=== PATIENT | male | born 1955 | race Caucasian/White ===

== ENCOUNTER 2021-12-20 17:15 | Emergency (ER) | payer MEDICARE, BC, SELFPAY ==
[2021-12-20 18:10] VITALS: BP 167/96; PULSE 71; RESP 20; TEMP 36.2; O2SAT 98; BMI 34.9
--- NOTE | 2021-12-20 19:15 | CRLHL7_ITS ---
For Patients: As a result of the Century Cures Act, medical imaging exams and procedure reports are released immediately into your electronic medical record. You may view this report before your referring provider. If you have questions, please contact your health care provider. Indication: Balance irregularity Technique: Volumetric multidetector CT images of the head were obtained without the administration of low osmolar intravenous contrast. Comparison: None available Findings: There is no intra-axial or extra-axial fluid collection. There is no mass effect or midline shift. There is age-related cortical atrophy with sulcal widening and ex vacuo dilatation of the lateral ventricles with a markedly prominent appearance of the 3rd ventricle which may represent presence of an arachnoid cyst. There are chronic small vessel disease changes in the subcortical and periventricular white matter without lost espinoza-white differentiation. The orbits and their contents are grossly within normal limits. The bony calvarium is grossly intact. The paranasal sinuses are clear. The mastoid air cells are well aerated. Impression: Age related cortical atrophy with sulcal widening and ex vacuo dilatation of the lateral ventricles. There is moderate prominence of the 3rd ventricle which may represent presence of an arachnoid cyst. Otherwise, no acute intracranial abnormality. Please note that all CT scans at this facility use dose modulation, iterative reconstruction, and/or weight-based dosing when appropriate to reduce radiation dose to as low as reasonably achievable. Dictated by Hernandez Rivera MD @ 12/20/2021 8:26:08 PM (Electronically Signed)
[2021-12-20] MEDS: 0.9 % SODIUM CHLORIDE 1000 ml 1,000 ML IV (19:48)
[2021-12-20 19:56] LABS: Basophils Absolute Auto 0.02 K/uL (0.00-0.30); Basophils Percent Auto 0.2 % (0.0-3.0); Eosinophils Absolute Auto 0.21 K/uL (0.00-0.50); Eosinophils Percent Auto 2.2 % (0.0-7.0); Hematocrit 38.3 % (37.0-53.0); Hemoglobin* 13.2 gm/dL (13.5-17.5); Immature Granulocytes Abs Auto 0.04 K/uL (0.00-0.30); Lymphocytes Percent Auto 44.9 % (20-44); Mean Corpuscular HGB Conc 35 gm/dL (32-36); Mean Corpuscular Hemoglobin 32 pg (26-34); Mean Corpuscular Volume 93 fL (80-100); Monocytes Percent Auto 5.8 % (0.0-11.0); Neutrophils Absolute Auto 4.43 K/uL (1.7-7.0); Neutrophils Percent Auto 46.5 % (42.0-72.0); Platelet Count* 224 K/uL (140-440); RDW Coefficient of Variation % 13.4 % (11.5-15.5); Red Blood Count 4.11 m/uL (4.30-5.90); White Blood Count* 9.52 K/uL (4.50-11.00)
[2021-12-20 19:57] LABS: Appearance Urine Clear (Clear); Bilirubin Urine Negative (Negative); Blood Urine Negative (Negative); Color Urine Yellow (Yellow); Glucose Urine Negative (Negative); Ketones Urine Negative (Negative); Leukocyte Esterase Urine Negative (Negative); Nitrite Urine Negative (Negative); Protein Urine Negative (Negative); Specific Gravity Urine 1.025 (1.000-1.030); Urobilinogen Urine 0.2 (0.2-1.0)
[2021-12-20 19:57] LABS: Slide Review Reflex No
[2021-12-20 20:03] VITALS: BP 159/101; BP 162/102; BP 167/90; PULSE 75; PULSE 77; PULSE 82
[2021-12-20 20:09] LABS: Albumin* 4.1 g/dL (3.3-5.0); Chloride* 98 mmol/L (96-114)
[2021-12-20 20:10] LABS: Potassium* 4.3 mmol/L (3.6-5.1); Sodium* 131 mmol/L (135-149)
[2021-12-20 20:12] LABS: Alkaline Phosphatase* 86 U/L (40-150); Aspartate Amino Transferase* 32 U/L (12-35); Bilirubin Total* 0.7 mg/dL (0.1-1.5); Blood Urea Nitrogen* 16 mg/dL (7-30); Carbon Dioxide* 29 mmol/L (20-32); Creatinine* 0.9 mg/dL (0.5-1.5); Estimated Glomerular Filt Rate 93 ml/min; Total Protein* 6.6 g/dL (6.0-8.3)
[2021-12-20 20:13] LABS: Alanine Aminotransferase* 28 U/L (4-50); Calcium* 8.7 mg/dL (8.4-10.6); Glucose* 99 mg/dL (60-115)
[2021-12-20 20:33] LABS: PCR FLU A Negative PCR FLU A (Negative); PCR FLU B Negative PCR FLU B (Negative)
[2021-12-20 20:49] LABS: SARS PCR* Negative SARS-CoV-2 (Negative)
[2021-12-20 21:00] VITALS: BP 157/102; PULSE 71; RESP 20; O2SAT 98
--- NOTE | 2021-12-20 21:18 | CT_ITS ---
Final Report Patient: JOSE ANDERSON Facility:?[facility] Patient ID:?[id number] Site Patient ID:?[id number]. Site :?1955 Study:?CT ST Neck Angio W/ISOVUE 370 95CC-12/20/2021 9:50:17 PM Ordering Physician:?Radha Gutiérrez Final Report: CT ANGIOGRAM NECK DATE: 12/20/2021 CLINICAL HISTORY: Patient with imbalance. TECHNIQUE: Standard helical CT image acquisition of the neck up to the skull base after bolus intravenous contrast enhancement. Multiplanar reconstructed images performed on a separate workstation. COMPARISON: CT same day. FINDINGS: The origins of the great vessels from the aortic arch are patent. The origin of the right vertebral artery is patent. The origin of the left vertebral artery is patent. The common carotid arteries are patent. There is no stenosis at the origin of the right internal carotid artery. There is no stenosis at the origin of the left internal carotid artery. The rest of the cervical segments of the internal carotid arteries are patent up to the skull base. The vertebral arteries are codominant. The cervical segments of the vertebral arteries are patent up to the skull base. The visualized lung apices are unremarkable. The thyroid gland is unremarkable. The soft tissues of the neck are unremarkable. There are degenerative changes in the cervical spine. IMPRESSION: Normal CT angiogram of the neck. Please note that all CT scans at this facility use dose modulation, iterative reconstruction, and/or weight-based dosing when appropriate to reduce radiation dose to as low as reasonably achievable. Dictated by: Sofya Balderas MD @ 12/20/2021 22:23:32 (Electronic Signature)
--- NOTE | 2021-12-20 21:18 | CT_ITS ---
Final Report Patient: JOSE ANDERSON Facility:?[facility] Patient ID:?[id number] Site Patient ID:?[id number]. Site :?[id number] Study:?CT Head Angio W/ISOVUE 370 95CC-12/20/2021 9:51:15 PM Ordering Physician:?Radha Gutiérrez Final Report: CT ANGIOGRAM HEAD DATE: 12/20/2021 CLINICAL HISTORY: Patient with imbalance. TECHNIQUE: Standard helical CT image acquisition through the intracranial circulation following intravenous administration of contrast material with bolus tracking. Multiplanar reconstructed images were performed and interpreted. COMPARISON: CT same day. FINDINGS: There is no cerebral aneurysm or large vessel occlusion. The right internal carotid artery is normal. The right middle cerebral artery and its branches are normal. The right anterior cerebral artery and its branches are normal. The left internal carotid artery is normal. The left middle cerebral artery and its branches are normal. The left anterior cerebral artery and its branches are normal. The anterior communicating artery is well visualized and appears normal. The right vertebral artery and PICA are normal. The left vertebral artery and PICA are normal. The vertebral arteries are codominant. The basilar artery is patent and appears normal. The right posterior cerebral artery is normal. The left posterior cerebral artery is normal. The visualized venous structures are patent. IMPRESSION: Normal CT angiogram of the head without intracranial aneurysm or other neurovascular abnormality. Please note that all CT scans at this facility use dose modulation, iterative reconstruction, and/or weight-based dosing when appropriate to reduce radiation dose to as low as reasonably achievable. Dictated by: Sofya Balderas MD @ 12/20/2021 22:25:15 (Electronic Signature)
--- NOTE | 2021-12-20 22:24 | ED.DIZZY ---
HPI - Dizziness General Time Seen by Provider: 19:00 Date Seen: 12/20/21 Chief Complaint: Dizziness/Vertigo Stated Complaint: HIGH BP,LIGHTHEADED Time Seen by Provider: 12/20/21 18:46 Source: patient, RN notes reviewed and old records reviewed Mode of arrival: ambulatory Limitations: no limitations History of Present Illness HPI Narrative: Chris is a very pleasant 66-year-old gentleman with a history of hypertension who comes to the emergency room for lightheadedness. States that he awoke this morning at 0300 hours to use the restroom and when he tried to get out of bed he noticed he was having a hard time walking and needed to grab onto something in order to get to the bathroom. He did not experience any visual changes, numbness or tingling of the extremities, chest pain or shortness of breath. He was able to make it back into bed and went back to sleep until this morning at 0700 hours. When he woke then his lightheadedness continued. Dates that is been present throughout the day. He adamantly denies vertiginous symptoms and denies that the room was moving about him. He has not had any ear pain or ear fullness or ringing in his ears. He notes that his blood pressure has high up to 169 systolic. He notices that he does get occasional fast heart rate and thought he had that this evening but by the time he got his monitor on it was registering in the 70s. He denies chest pain. He denies any numbness and tingling of his face tongue or difficulty speaking. He has had adequate fluid he thinks today. Denies a fever cough cold congestion or runny nose. He has been working with a CPAP machine that he is not sure is working adequately. He is wondering if that is possibly causing his lightheadedness today. He has no history of recent illness vertigo head trauma or fall. Head movement does not make it worse. He really only notices this when he stands up and tries to walk. MD elicited complaint: difficulty walking and disequilibrium Related Data Home Medications Medication Instructions Recorded Confirmed bupropion HCl 300 mg 24 hr tablet, mg PO 12/20/21 extended release doxazosin 8 mg tablet mg 12/20/21 losartan 100 mg tablet mg 12/20/21 mirabegron 50 mg tablet,extended mg PO 12/20/21 release 24 hr (Myrbetriq) pantoprazole 40 mg tablet,delayed mg PO 12/20/21 release tamsulosin 0.4 mg capsule mg PO 12/20/21 Allergies Allergy/AdvReac Type Severity Reaction Status Date / Time No Known Drug Allergies Allergy Verified 12/20/21 18:09 Review of Systems Status of ROS: Reports: 10 or more systems reviewed and unremarkable except as noted in History and below Const: Denies: fever, chills or fatigue Eyes: Denies: change in vision or blurry vision ENMT: Denies: throat pain, neck pain or difficulty swallowing Cardio: Reports: palpitations (Brief episode of rapid heart rate. Subjective.); Denies: chest pain or shortness of breath with exertion Resp: Denies: shortness of breath or cough GI: Denies: abdominal pain, nausea, vomiting or difficulty swallowing : Denies: painful urination Musculo: Denies: back pain or neck pain Integ/Breast: Denies: rash Neuro: Reports: lack of coordination (Not unilateral); Denies: headache, numbness in extremities, slurred speech, difficulty communicating thoughts or involuntary movements Psych: Denies: anxiety Endo: Denies: fatigue PFSH PFSH Social History Smoking Status: Never smoker How often do you have a drink containing alcohol: 2-3 times a week AUDIT-C Alcohol total score: 3 Non-prescribed substance use: denies use Exam Const: Vital Signs, click to edit/add: Vital Signs - 24 hr 12/20/21 18:10 12/20/21 20:03 12/20/21 21:00 Temperature 97.2 F L Pulse Rate [Right Pulse Oximeter] 71 71 Pulse Rate [orthos tatic lying Pulse Oximeter] 75 Pulse Rate [orthos tatic sitting Puls e Oximeter] 82 Pulse Rate [orthos tatic standing Pul se Oximeter] 77 Respiratory Rate 20 20 Blood Pressure [Ri ght Upper Arm] 167/96 H 157/102 H Blood Pressure [or thostatic lying] 167/90 H Blood Pressure [or thostatic sitting] 159/101 H Blood Pressure [or thostatic standing ] 162/102 H Pulse Oximetry 98 98 Documenting provider has reviewed patient's vital signs: yes Common normals: no apparent distress and oriented x3 General appearance: cooperative, comfortable and anxious Nutritional appearance: overweight HENMT: Common normals: normocephalic and external ears normal Head and scalp: normocephalic Face and sinus: normal facial exam External ear: external ears normal Mouth: oral and palatal mucosa normal and tongue normal (Midline) Eye: Common normals: PERRL General eye: normal appearance of both eyes Pupil: PERRL Other: No nystagmus in lateral gaze. Pupils equal round reactive. Neck & C-Spine: Common normals: full ROM, no lymphadenopathy and supple Resp: Common normals: normal respiratory effort and clear to auscultation bilaterally Auscultation: clear to auscultation bilaterally Cardio: Common normals: regular rate and regular rhythm Rate: regular rate Rhythm: regular rhythm GI: Common normals: soft to palpation and non-tender Palpation: soft : Common normals: no CVA tenderness Bladder/kidney exam: no CVA tenderness Back & Pelvis: Common normals: no CVA tenderness Extremity: Common normals: normal to inspection and full ROM Neuro: Common normals: oriented x3 and CN's II-XII intact bilaterally Coordination/balance: noogcd-ot-riij test normal, jmww-ks-lpzt test normal, does not sway with eyes open, Romberg test negative and Normal rapid alternating movements of the distal upper extremity present (Neuro); tandem gait abnormal Speech: speech normal Gait (neuro): ataxic (Very subtle in attempts at tandem walking.) Coordination: evepkb-xd-cfti test normal, eauf-xy-pcez test normal, does not sway with eyes open and rapid alternating movement UE normal; tandem gait abnormal Pupil exam: Normal pupillary reactivity/response: bilateral Psych: Common normals: mental status grossly normal Insight: insight good Judgement: judgment good Skin: Common normals: no rashes or lesions noted General skin exam: no rashes or lesions noted Course Course Hospital Course: Differential diagnosis includes but is not limited to CVA, benign positional vertigo, dehydration, anxiety, neurological pathology. Will place an IV and give patient 1 L of normal saline. Will also have him undergo CT of the head, check of CBC, basic panel, LFTs, CRP, urinalysis and COVID. Reevaluation(s) Reevaluation #1: Patient's head CT has come back negative and reassuring. Will call neurologist at this time. Unfortunately unable to proceed with MRI here. White count normal at 9.52 with normal hemoglobin as well creatinine. LFTs within normal limits. Urinalysis with a specific gravity of 1.025 and negative for ketones. While awaiting patient's neurological consultation he notes he is feeling better. He was able to walk around the emergency room with no problems. Consultations Consultation #1: Consulted with [place] neurologist Dr. Chan. At this time Factors not convinced we are dealing with a stroke but does suggest a CTA of head and neck. If that is normal he will be able to go home and follow up with an outpatient MRI. Did note that fluids were given and he seems to have improved. However he does go through all of the foods and drink he has had today and he does not think that he is dehydrated. Did not have ketones in his urine. Vital Signs Vital signs: Initial Vital Signs Temperature 97.2 F L 12/20/21 18:10 Temperature Source Temporal Artery Scan 12/20/21 18:10 Pulse Rate 71 12/20/21 18:10 Respiratory Rate 20 12/20/21 18:10 Blood Pressure 167/96 H 12/20/21 18:10 Blood Pressure Mean 119 12/20/21 18:10 Blood Pressure Position Sitting 12/20/21 18:10 Pulse Oximetry 98 12/20/21 18:10 Oxygen Delivery Method 12/20/21 18:10 Vital Signs Temperature 97.2 F L 12/20/21 18:10 Pulse Rate 71 12/20/21 18:10 Respiratory Rate 20 12/20/21 18:10 Blood Pressure 167/96 H 12/20/21 18:10 Pulse Oximetry 98 12/20/21 18:10 Temperature 97.2 F L 12/20/21 18:10 Pulse Rate 71 12/20/21 21:00 Respiratory Rate 20 12/20/21 21:00 Blood Pressure 157/102 H 12/20/21 21:00 Pulse Oximetry 98 12/20/21 21:00 MDM - Dizziness MDM Narrative Medical decision making narrative: 1. Balance problems resolved-at this time patient has resolution of his symptoms and wants to go home. Resolution of symptoms came after IV fluids. has a reassuring CT and CTA. Neurology recommends that he follow up as an outpatient for MRI. I would recommend that he stay well hydrated. Of course for worsening symptoms would have him return to the emergency room. Patient does take aspirin daily. He should continue to do so. 2. Ndpqwrmgetma-boupud-vm with primary MD. no change in medications this evening. I do not think that elevated blood pressure is part of of the symptoms tonight. Laboratory values reassuring with normal electrolyte panel with the exception of slightly depressed sodium at 0131. White count hemoglobin and platelets all within normal limits COVID is negative and LFTs within normal limits. 3. Disposition-patient is discharged home. Return for worsening symptoms. Medical Records Attestation: I reviewed the patient's medical records. Lab Data Attestation: I reviewed the patient's lab results. Labs: Lab Results 12/20/21 12/20/21 12/20/21 Range/Units 19:30 19:40 19:40 WBC 9.52 (4.50-11.00) K/uL RBC 4.11 L (4.30-5.90) m/uL Hgb 13.2 L (13.5-17.5) gm/dL Hct 38.3 (37.0-53.0) % MCV 93 (80-100) fL MCH 32 (26-34) pg MCHC 35 (32-36) gm/dL RDW Coeff of Davie 13.4 (11.5-15.5) % Plt Count 224 (140-440) K/uL Neut % (Auto) 46.5 (42.0-72.0) % Lymph % (Auto) 44.9 H (20-44) % [place] % (Auto) 5.8 (0.0-11.0) % Eos % (Auto) 2.2 (0.0-7.0) % Baso % (Auto) 0.2 (0.0-3.0) % Neut # (Auto) 4.43 (1.7-7.0) K/uL Lymph # (Auto) 4.30 H (0.90-2.90) K/uL [place] # (Auto) 0.60 (0.00-0.90) K/UL Eos # (Auto) 0.21 (0.00-0.50) K/uL Baso # (Auto) 0.02 (0.00-0.30) K/uL Abs Immat Gran (auto) 0.04 (0.00-0.30) K/uL Sodium 131 L (135-149) mmol/L Potassium 4.3 (3.6-5.1) mmol/L Chloride 98 (96-114) mmol/L Carbon Dioxide 29 (20-32) mmol/L BUN 16 (7-30) mg/dL Creatinine 0.9 (0.5-1.5) mg/dL Estimated Creat Clear 75.30 Estimated GFR 93 ml/min Glucose 99 (60-115) mg/dL Calcium 8.7 (8.4-10.6) mg/dL Total Bilirubin 0.7 (0.1-1.5) mg/dL AST 32 (12-35) U/L ALT 28 (4-50) U/L Alkaline Phosphatase 86 (40-150) U/L Total Protein 6.6 (6.0-8.3) g/dL Albumin 4.1 (3.3-5.0) g/dL Urine Color Yellow (Yellow) Urine Appearance Clear (Clear) Urine pH 7.0 (5.0-8.5) Ur Specific Manning 1.025 (1.000-1.030) Urine Protein Negative (Negative) Urine Glucose (UA) Negative (Negative) Urine Ketones Negative (Negative) Urine Blood Negative (Negative) Urine Nitrite Negative (Negative) Urine Bilirubin Negative (Negative) Urine Urobilinogen 0.2 (0.2-1.0) Ur Leukocyte Esterase Negative (Negative) SARS-CoV-2 (PCR) (Negative) Influenza Type A (PCR) (Negative) Influenza Type B (PCR) (Negative) 12/20/21 Range/Units 19:40 WBC (4.50-11.00) K/uL RBC (4.30-5.90) m/uL Hgb (13.5-17.5) gm/dL Hct (37.0-53.0) % MCV (80-100) fL MCH (26-34) pg MCHC (32-36) gm/dL RDW Coeff of Davie (11.5-15.5) % Plt Count (140-440) K/uL Neut % (Auto) (42.0-72.0) % Lymph % (Auto) (20-44) % [place] % (Auto) (0.0-11.0) % Eos % (Auto) (0.0-7.0) % Baso % (Auto) (0.0-3.0) % Neut # (Auto) (1.7-7.0) K/uL Lymph # (Auto) (0.90-2.90) K/uL [place] # (Auto) (0.00-0.90) K/UL Eos # (Auto) (0.00-0.50) K/uL Baso # (Auto) (0.00-0.30) K/uL Abs Immat Gran (auto) (0.00-0.30) K/uL Sodium (135-149) mmol/L Potassium (3.6-5.1) mmol/L Chloride (96-114) mmol/L Carbon Dioxide (20-32) mmol/L BUN (7-30) mg/dL Creatinine (0.5-1.5) mg/dL Estimated Creat Clear Estimated GFR ml/min Glucose (60-115) mg/dL Calcium (8.4-10.6) mg/dL Total Bilirubin (0.1-1.5) mg/dL AST (12-35) U/L ALT (4-50) U/L Alkaline Phosphatase (40-150) U/L Total Protein (6.0-8.3) g/dL Albumin (3.3-5.0) g/dL Urine Color (Yellow) Urine Appearance (Clear) Urine pH (5.0-8.5) Ur Specific [place] (1.000-1.030) Urine Protein (Negative) Urine Glucose (UA) (Negative) Urine Ketones (Negative) Urine Blood (Negative) Urine Nitrite (Negative) Urine Bilirubin (Negative) Urine Urobilinogen (0.2-1.0) Ur Leukocyte Esterase (Negative) SARS-CoV-2 (PCR) Negative SARS-CoV-2 (Negative) Influenza Type A (PCR) Negative PCR FLU A (Negative) Influenza Type B (PCR) Negative PCR FLU B (Negative) Imaging Data CT scan - head: Attestation: I have reviewed the pertinent imaging results. CTA head and neck: Attestation: I have reviewed the pertinent imaging results. My impression: No acute findings Radiologist's impression: No acute findings ECG Data Interpretation: cost estimating manager shows sinus rhythm without any evidence of arrhythmia during patient's stay in the ED. Discharge Plan Discharge Clinical Impression: Balance problem Patient Disposition: Home, Self-Care Condition: Improved Additional Instructions: Stay well hydrated. Continue to take aspirin daily. Follow-up with your primary MD for outpatient MRI. Return to the emergency room for recurrence of symptoms or onset of new symptoms. Prescriptions: No Action doxazosin 8 mg tablet 0RF tamsulosin 0.4 mg capsule PO 0RF pantoprazole 40 mg tablet,delayed release (DR/EC) PO 0RF losartan 100 mg tablet 0RF bupropion HCl 300 mg tablet extended release 24 hr PO 0RF Myrbetriq 50 mg tablet extended release 24 hr PO 0RF Follow Up/Referrals: Mukesh Carr MD [Primary Care Provider] - Stand Alone Forms: [employer] Info Instructions
[2021-12-20 23:00] VITALS: BP 160/118; PULSE 83; RESP 18; O2SAT 96
== END 2021-12-20 23:10 | disposition home or self-care (01) ==
PROVIDERS: Emergency Provider Family Medicine; PCP Family Medicine
DX: R26.81 Unsteadiness on feet (principal); I10 Essential (primary) hypertension
CPT/HCPCS: 36415; 70450; 70496; 70498; 80053; 81003; 85025; 87502; 87635; 96360; 99285; J7030; Q9967

== ENCOUNTER 2022-12-17 12:16 | Emergency (ER) | payer MEDICARE, BC, SELFPAY ==
[2022-12-17 12:29] VITALS: BP 115/66; PULSE 81; RESP 16; TEMP 36.2; O2SAT 97; BMI 34.2
--- NOTE | 2022-12-17 12:41 | CRLHL7_ITS ---
For Patients: As a result of the Cures Act, medical imaging exams and procedure reports are released immediately into your electronic medical record. You may view this report before your referring provider. If you have questions, please contact your health care provider. Indication: Injury Technique: Two views of the thoracic spine were acquired. Three views of the lumbar spine were acquired. An AP view of the pelvis was acquired as well as AP lateral views of each hip. Comparison: No prior relevant studies Findings: Thoracic spine: Demineralization. Mild kyphosis. Diffuse idiopathic skeletal hyperostosis of the dorsal spine. By plain film, there is no visible acute fracture, dislocation or destructive process. Lumbar spine: Demineralized osseous structures. Degenerative changes diffusely including facet joints and disc degenerative disease. No visible acute fracture, dislocation or destructive process. Pelvis and bilateral hips: Moderate bilateral hip joint osteoarthritis and degenerative changes of the incidentally visualized lower lumbar spine. No acute fracture, dislocation or destructive process. Impression: No visible acute fracture, dislocation or destructive process involving the thoracic spine, lumbar spine, pelvis, the right hip and the left hip. Nonacute appearing findings as discussed above. Dictated by Carlos Madrigal MD @ 12/17/2022 2:37:11 PM (Electronically Signed)
--- NOTE | 2022-12-17 12:41 | CRLHL7_ITS ---
For Patients: As a result of the Cures Act, medical imaging exams and procedure reports are released immediately into your electronic medical record. You may view this report before your referring provider. If you have questions, please contact your health care provider. INDICATION: Fall, head trauma and neck pain. TECHNIQUE: CT cervical spine without contrast. COMPARISON: None FINDINGS: Vertebrae: Alignment is normal. There are no fractures or suspicious bony lesions. Discs and facet joints: Posterior osteophytes C2-3 causing mild right and moderate left foraminal stenosis. Facet hypertrophy with posterior osteophytes at C3-4 causing moderate right and mild left foraminal stenosis. Facet hypertrophy with posterior osteophytes at C4-5 causing moderate right and mild left foraminal stenosis. Facet hypertrophy with posterior osteophytes at C5-6 with some disc space narrowing causing E moderate bilateral foraminal stenosis. Facet hypertrophy with posterior osteophytes at C6-7 causing moderate to severe bilateral foraminal stenosis. Facet hypertrophy C7-T1 with no significant stenosis. Extraspinal findings: Ossicle within the nuchal ligament. Trace left mastoid fluid. Atherosclerosis. IMPRESSION: Multilevel degenerative changes cervical spine without evidence of cervical spine fracture. Please note that all CT scans at this facility use dose modulation, iterative reconstruction, and/or weight-based dosing when appropriate to reduce radiation dose to as low as reasonably achievable. Dictated by Daniel Araujo MD @ 12/17/2022 3:14:53 PM (Electronically Signed)
--- NOTE | 2022-12-17 12:41 | CRLHL7_ITS ---
For Patients: As a result of the Century Cures Act, medical imaging exams and procedure reports are released immediately into your electronic medical record. You may view this report before your referring provider. If you have questions, please contact your health care provider. INDICATION: Fall, head trauma TECHNIQUE: CT head without contrast. COMPARISON: Head CT 12/20/2021 FINDINGS: CSF spaces: Mild dilatation of the 3rd ventricle, similar to the prior exam. Brain parenchyma: No intracranial bleed or mass effect. Najera-white differentiation is distinct. Skull base and calvarium: Mucosal thickening within the right maxillary sinus. The visualized orbits are grossly unremarkable. No skull fractures. IMPRESSION: 1. No calvarial fracture or intracranial bleed. 2. Mild dilation of the 3rd ventricle redemonstrated, similar to prior. Please note that all CT scans at this facility use dose modulation, iterative reconstruction, and/or weight-based dosing when appropriate to reduce radiation dose to as low as reasonably achievable. Dictated by Daniel Araujo MD @ 12/17/2022 3:05:18 PM (Electronically Signed)
--- NOTE | 2022-12-17 12:44 | ED_ITS ---
HPI - General Adult General Time Seen by Provider: 12:30 Date Seen: 12/17/22 Chief complaint: Fall/Minor Trauma Stated complaint: Fell last night, hip/rib pain since Time Seen by Provider: 12/17/22 12:18 Source: patient Mode of arrival: ambulatory Limitations: no limitations History of Present Illness HPI narrative: Patient is a 67-year-old male with history of high blood pressure presenting to the emergency department for a fall. He states that today he was climbing up a ladder when he slipped and fell. Says he landed on the ground. Patient does admit hitting his head but denies any loss of consciousness. He also hit his left gluteal region. He thinks about part hit off the tractor. His nose large bruising to the area. He is able to ambulate but it is painful at this time. It tried ibuprofen for pain without improvement in his symptoms. He is also having paraspinal tenderness to his thoracic and lumbar region on the right side. Denies any other injuries. Denies upper or lower extremity pain. Denies numbness or weakness. He is not on any blood thinners. Related Data Home Medications Medication Instructions Recorded Confirmed bupropion HCl 300 mg 24 hr tablet, mg PO 12/20/21 extended release doxazosin 8 mg tablet mg 12/20/21 losartan 100 mg tablet mg 12/20/21 mirabegron 50 mg tablet,extended mg PO 12/20/21 release 24 hr (Myrbetriq) pantoprazole 40 mg tablet,delayed mg PO 12/20/21 release tamsulosin 0.4 mg capsule mg PO 12/20/21 Previous Rx's Medication Instructions Recorded oxycodone 5 mg capsule 5 mg PO Q6H PRN pain #12 caps 12/17/22 Allergies Allergy/AdvReac Type Severity Reaction Status Date / Time No Known Drug Allergies Allergy Verified 12/20/21 18:09 Review of Systems Status of ROS: Reports: 10 or more systems reviewed and unremarkable except as noted in History and below [facility] Social History Smoking Status: Never smoker How often do you have a drink containing alcohol: 2-3 times a week How often do you have six or more drinks on one occasion: Never AUDIT-C Alcohol total score: 3 Non-prescribed substance use: denies use Exam Narrative: Exam Narrative: Const: Well-nourished, Well-developed, in mild distress Eyes: PERRL, no conjunctival injection, and symmetrical lids ENMT: Abrasion noted above the left eye. Moist mucous membranes. Neck: Symmetric, trachea midline, No thyromegaly. CVS: RRR, No murmurs or gallops. Peripheral pulses 2+ and equal in all extremities RESP: Unlabored respiratory effort. Clear to auscultation bilaterally. GI: Nontender/Nondistended, No rebound or guarding. MSK:Extremities w/o deformity, Normal Active ROM, large bruising and tenderness to left gluteal region. Paraspinal tenderness on the right side of back worse in the thoracic region around T4-T5. No midline tenderness Skin: Warm, Dry. Abrasion noted above left eye and bruising to left gluteal region Neuro: Normal Muscle tone, No focal neurological deficits. Psych: Awake, Alert, & Oriented x3. Appropriate mood and affect. Const: Vital Signs, click to edit/add: Vital Signs - 24 hr 12/17/22 12:29 12/17/22 14:26 Temperature 97.2 F L Pulse Rate [Pulse Oximeter] 81 67 Respiratory Rate 16 Blood Pressure [Ri t Upper Arm] 115/66 111/78 Pulse Oximetry 97 97 Oxygen Delivery Me thod Room Air Room Air Course Vital Signs Vital signs: Initial Vital Signs Temperature 97.2 F L 12/17/22 12:29 Temperature Source Temporal Artery Scan 12/17/22 12:29 Pulse Rate 81 12/17/22 12:29 Respiratory Rate 16 12/17/22 12:29 Blood Pressure 115/66 12/17/22 12:29 Blood Pressure Mean 82 12/17/22 12:29 Blood Pressure Position Sitting 12/17/22 12:29 Pulse Oximetry 97 12/17/22 12:29 Oxygen Delivery Method Room Air 12/17/22 12:29 Vital Signs Temperature 97.2 F L 12/17/22 12:29 Pulse Rate 81 12/17/22 12:29 Respiratory Rate 16 12/17/22 12:29 Blood Pressure 115/66 12/17/22 12:29 Pulse Oximetry 97 12/17/22 12:29 Oxygen Delivery Method Room Air 12/17/22 12:29 Temperature 97.2 F L 12/17/22 12:29 Pulse Rate 67 12/17/22 14:26 Respiratory Rate 16 12/17/22 12:29 Blood Pressure 111/78 12/17/22 14:26 Pulse Oximetry 97 12/17/22 14:26 Oxygen Delivery Method Room Air 12/17/22 14:26 Medical Decision Making MDM Narrative Medical decision making narrative: Patient is a 67-year-old male presenting to the emergency department after a fall. This fall happened last night. He still having pain to his left gluteal region. He did hit his head. But denies any loss of consciousness. He has a large hematoma to his left gluteal region. He states his tetanus is up-to-date with his last 1 being about 4 or 5 years ago. X-ray of the bilateral pelvis was ordered. Will also order x-rays of lumbar and thoracic spines due to pain on palpation. Most of pain is in the paraspinal region and none is midline. We did do a CT of the head and cervical spine. Toradol was given for pain. Imaging all returned showing no acute fractures. Patient still in pain after the Toradol and an oral oxycodone was given. After this he is feeling much better. I believe his pain is off all musculoskeletal in nature. The hematoma will heal over time. I informed him to follow up with primary care provider. He is having no lightheadedness or dizziness denies not believe further workup is necessary. Speaking to the patient all appears to be mechanical in nature. States he slipped off the ladder. Patient be discharged home with prescription for oxycodone. He is agreeable to this plan Discharge Plan Discharge Clinical Impression: Muscle strain Contusion Qualifiers: Encounter type: initial encounter Contusion area: hip Laterality: left Qualified Code(s): S70.02XA - Contusion of left hip, initial encounter Patient Disposition: Home, Self-Care Condition: Stable Instructions: Bone Bruise (ED) Additional Instructions: Follow-up with the primary care provider. Return for new or worsening symptoms. He can take Tylenol and ibuprofen for pain. He also take the medication I prescribed to help with the pain. Prescriptions: New oxycodone 5 mg capsule 5 mg PO Q6H PRN (Reason: pain) Qty: 12 0RF No Action doxazosin 8 mg tablet tamsulosin 0.4 mg capsule PO pantoprazole 40 mg tablet,delayed release (DR/EC) PO losartan 100 mg tablet bupropion HCl 300 mg tablet extended release 24 hr PO Myrbetriq 50 mg tablet extended release 24 hr PO Follow Up/Referrals: Mukesh Carr MD [Primary Care Provider] - Stand Alone Forms: [employer] Info Instructions
[2022-12-17] MEDS: KETOROLAC 30 MG/ML inj IM (13:48)
[2022-12-17 14:26] VITALS: BP 111/78; PULSE 67; O2SAT 97
[2022-12-17] MEDS: OXYCODONE 5 MG TABLET PO (14:32)
== END 2022-12-17 15:38 | disposition home or self-care (01) ==
PROVIDERS: Emergency Provider Student in an Organized Health Care Education/Training Program; PCP Family Medicine
DX: S70.02XA Contusion of left hip, initial encounter (principal); W11.XXXA Fall on and from ladder, initial encounter
CPT/HCPCS: 70450; 72072; 72100; 72125; 73521; 96372; 99283; 99284; A9270; J1885

== ENCOUNTER 2023-10-20 04:39 | Emergency (ER) | payer MEDICARE, BC, SELFPAY ==
[2023-10-20 04:58] VITALS: BP 160/89; PULSE 82; RESP 16; TEMP 36.2; O2SAT 98; BMI 36.3
--- OUTSIDE RECORDS SUMMARY | 2023-10-20 05:59 | XMS_ITS | Clinical Summary ---
Author Name Unknown Organization [facility] Address [place], [place] [address] Care Team Providers Care Horticulture Teacher Name Role Phone Russ Solares MD Unavailable [phone] Mukesh Carr MD Primary Care Provider + Devin Denney MD Unavailable Allergies No known active allergies Medications Medication Sig Dispensed Refills Start Date End Date Status aspirin enteric coated 81 mg tablet Take 1 tablet by mouth once daily with a meal. 0 0 Active multivit-minerals/ folic acid (MEN'S DAILY GUMMIES ORAL) Take 2 tablets by mouth once daily. Active cholecalciferol (VITAMIN D-3) 2,000 unit capsule Take 2,000 Units by mouth once daily. Active CPAPIndications:OS A (obstructive sleep apnea) CPAP machine for home use at pressure 13 cmw, full face mask x1/3month with a full face cushion x1/mo 1 Each 11 2 Active ergocalciferol (Vitamin D2) 50,000 unit capsuleIndications :Vitamin D deficiency Take 1 Capsule (50,000 units) by mouth every Thursday and . 24 Capsule 2 3 Active albuterol HFA (PRO-AIR; VENTOLIN; PROVENTIL) 90 mcg/actuation inhalerIndications :Cough, unspecified type Inhale 1-2 Puffs by mouth every 4 hours if needed for Shortness of Breath 1st choice (cough). 1 Each 3 Active buPROPion (WELLBUTRIN XL) 300 mg Extended-Release tabletIndications: Dysthymia Take 1 Tablet (300 mg) by mouth once daily. 90 Tablet 3 3 Active rosuvastatin (CRESTOR) 10 mg tabletIndications: Hyperlipidemia, unspecified hyperlipidemia type Take 1 Tablet (10 mg) by mouth at bedtime. 90 Tablet 3 4 Active losartan (COZAAR) 100 mg tabletIndications: HTN (hypertension) TAKE 1 TABLET(100 MG) BY MOUTH EVERY DAY 90 Tablet 3 4 Active doxazosin (CARDURA) 8 mg tabletIndications: HTN (hypertension) TAKE 1 TABLET(8 MG) BY MOUTH AT BEDTIME 90 Tablet 3 4 Active amLODIPine (NORVASC) 5 mg tabletIndications: Hypertension Take 1 Tablet (5 mg) by mouth once daily. 90 Tablet 3 4 Active pantoprazole (PROTONIX) 40 mg delayed-release tabletIndications: Chronic cough Take 1 Tablet (40 mg) by mouth once daily before a meal. 90 Tablet 3 4 Active tamsulosin (FLOMAX) 0.4 mg capsuleIndications :BPH with urinary obstruction Take 1 Capsule (0.4 mg) by mouth once daily after a meal. 90 Capsule 3 4 Active carvediloL (COREG) 6.25 mg tabletIndications: HTN (hypertension) Take 1 Tablet (6.25 mg) by mouth two times daily with meals. 3 09/21/19 24 Discontinued Myrbetriq 50 mg tabletIndications: Urinary urgency TAKE 1 TABLET(50 MG) BY MOUTH EVERY DAY 90 Tablet 3 3 10/16/19 24 Discontinued(*Pa ricardont states no longer taking) doxazosin (CARDURA) 8 mg tabletIndications: HTN (hypertension) TAKE 1 TABLET(8 MG) BY MOUTH AT BEDTIME 90 Tablet 3 3 10/16/19 24 Discontinued(Reo rder (E-cancel not sent)) tamsulosin (FLOMAX) 0.4 mg capsuleIndications :BPH with urinary obstruction Take 1 Capsule (0.4 mg) by mouth once daily after a meal. 90 Capsule 3 3 10/16/19 24 Discontinued(Reo rder (E-cancel not sent)) losartan (COZAAR) 100 mg tabletIndications: HTN (hypertension) TAKE 1 TABLET(100 MG) BY MOUTH EVERY DAY 90 Tablet 3 3 10/16/19 24 Discontinued(Reo rder (E-cancel not sent)) amLODIPine (NORVASC) 5 mg tabletIndications: Hypertension Take 1 Tablet (5 mg) by mouth once daily. 90 Tablet 3 3 10/16/19 24 Discontinued(Reo rder (E-cancel not sent)) pantoprazole (PROTONIX) 40 mg delayed-release tabletIndications: Chronic cough Take 1 Tablet (40 mg) by mouth two times daily before meals. 60 Tablet 2 3 10/16/19 24 Discontinued(Reo rder (E-cancel not sent)) carvediloL (COREG) 6.25 mg tabletIndications: HTN (hypertension) TAKE 2 TABLETS(12.5 MG) BY MOUTH TWICE DAILY WITH MEALS 30 Tablet 4 10/16/19 24 Discontinued(*Sergio craig states no longer taking) Active Problems Patient Care Coordination No te Formatting of this note migh t be different from the original. HF/Structural Research Eligibility Review Date: 08/17/18 Age: 63 Insurance: [facility] Valve/Imaging: No moderate-severe disease Problem Noted Date Diagnosed Date Chest pain 05/20/2018 Benign non-nodular prostatic hyperplasia with lower urinary tract symptoms 09/24/2016 Frequency of urination 10/31/2015 HTN (hypertension) 03/28/2014 Chest pain, musculoskeletal 04/27/2012 JONNA 09/2009 AHI-67 09/16/2021 AHI-60 09/15/2011 Vitamin D deficiency 08/25/2011 Overactive bladder 04/19/2010 Dysthymia 11/02/2009 CHOUDHURY (dyspnea on exertion) 09/21/2009 Obesity, unspecified 09/21/2009 Major depression, recurrent 08/31/2009 Plantar fasciitis 04/06/2009 Benign non-nodular prostatic hyperplasia with lower urinary tract symptoms Impaired fasting glucose Resolved Problems Problem Noted Date Diagnosed Date Resolved Date JONNA (obstructive sleep apnea) 10/25/2009 09/15/2011 Elevated blood pressure read ing without diagnosis of hypertension 04/06/2009 03/28/2014 Major depressive disorder, r ecurrent episode, unspecified 01/21/2007 08/31/2009 Encounters Date Type Department Care Team Description 10/19/2023 Telephone [facility] [address] [place] [address] Gisele Castle, Results 10/16/2023 1:10 PM CDT Office Visit [facility] [address] [place] [address] Gisele Castle, Blood Pressure (Home readings have been 110-120/70-80. Pulse has been elevated); Medication Management 10/16/2023 Travel 09/18/2023 Refill [facility] [address] [place] [address] Mukesh Carr MD Refill Request (Carvedilol) from Last 3 Months Immunizations Name Administration Dates Next Due COVID-19 Vaccine Spikevax (M oderna 50mcg/0.5mL) 12YO+ [id number] Formula PF 06/03/2023 COVID-19 vaccine ([employer]-Bio NTech 30mcg/0.3mL) 12YO+ BIVALENT PF, MDV 06/10/2022 COVID-19 vaccine (Pfizer-Bio NTech 30mcg/0.3mL) 12YO+ YUVAL-SUCROSE PF, MDV 01/16/2022,07/10/2021 COVID-19 vaccine (Pfizer-BioNTech 30mcg/0.3mL) P F, MDV 10/04/2020,09/13/2020 Influenza, IIV3 (Age 6-35 mos) 02/18/2011 Influenza, IIV3 (Age >=3 years) 02/18/2011 Influenza, Inactivated AIIV4 (Age 65+ Years) Preserv Free 06/03/2023,04/22/2022 Pneumococcal Poly,23-Valent (Pneumovax) 02/29/20 Pneumococcal conj 13-Valent (Prevnar 13) 019 Td, Preservative Free (age >= 7 Years) 6 Tdap 03/18/2017 Zoster (Shingrix-RZV, recombinant) 11/28/2021,04 / Family History Medical History Relation Name Comments Other Brother 3 syncopal spell Heart Disease Father Hypertension Father Stroke Maternal Uncle Hypertension Mother Heart Disease Sister 4 congenital ho le in the heart Anesthesia Problem No Family History Blood Disease No Family History Relation Name Status Comments Brother 1 Alive Brother 2 Alive Brother 3 Daughter Alive Father Alive Maternal Uncle Mother Alive Sister 1 Alive Sister 2 Alive Sister 3 Alive Sister 4 Social History Tobacco Use Types Packs/Day Years Used Date Smoking Tobacco: Never Smokeless Tobacco: Never Tobacco Cessation:Counseling Given: Yes Alcohol Use Standard Drinks/Week Comments Yes 0 (1 standard drink = 0.6 oz pure alcohol) 2 beers once per week on average PHQ-2 Answer Date Recorded PHQ-2 TOTAL SCORE 0 04/29/2023 Social Connections Answer Date Recorded Frequency of Communication with Friends and Fami ly 0 10/16/2023 Financial Resource Strain Answer Date R ecorded Difficulty of Paying Living Expenses 3 10/16/2023 Difficulty of Paying Living Expenses Not on file 10/16/2023 Food Insecurity Answer Date Recorded Worried About Running Out of Food in the Last Ye ar 1 10/16/2023 Transportation Needs Answer Date Record ed Lack of Transportation (Medical) 1 10/16/2023 Housing Stability Answer Date Recorded Unable to Pay for Housing in the Last Year 1 10/16/2023 Sex and Gender Information Value Date Recorded Sex Assigned at Not on file Gender Identity Not on file Sexual Orientation Not on file Obstetrics History Last Filed Vital Signs Vital Sign Reading Time Taken Comments Blood Pressure 122/74 10/16/2023 1:14 PM CDT Pulse 72 10/16/2023 1:14 PM CDT Temperature 36.6 ??C (97.8 ??F) 04/29/2023 1:38 PM CS T Respiratory Rate 18 11/27/2022 1:04 PM CDT Oxygen Saturation 98% 06/03/2023 10:55 AM MARKETING STRATEGY MANAGER Inhaled Oxygen Concentration - - Weight 117.5 kg (259 lb) 10/16/2023 1:14 PM CDT Height 177.8 cm (5' 10) 06/03/2023 10:55 AM MARKETING STRATEGY MANAGER Body Mass Index 37.16 06/03/2023 10:55 AM MARKETING STRATEGY MANAGER Plan of Treatment Health Maintenance Due Date Last Done Comments Hepatitis C screening for ag e 18-79 1971 Influenza for age 65+ 01/31/2024 06/03/2023 , 04/22/2022, 02/18/2011 Depression screening for age 12+ 04/29/2024 04/29/2023, 04/29/2023, 04/03/2023, Additional history exists Medicare Wellness for age 65+ 04/29/2024 04/29/2023, 01/16/2022 BMI (ht and wt on same day) for age 18+ 06/03/2024 06/03/2023, 04/29/2023, 11/27/2022, Additional history exists Tetanus booster 03/18/2027 03/18/2017, 05/08/2006 Lipids for age 45-75 11/28/2027 11/27/2022, 01/16/2022, 07/04/2020, Additional history exists Colonoscopy through age 75 04/03/203004/03, 04/03/2020, 04/03/2020, Additional history exists Tdap Completed 03/18/2017 Pneumococcal series for age 65+ Completed , 11/16/2018 Zoster (shingles) series for age 50+ Completed 11/28/2021, 09/26/2021 COVID-19 vaccine series Completed 06/03/19 24, 06/10/2022, 01/16/2022, Additional history exists Procedures Procedure Name Priority Date/Time Associated Diagnosis Comments MAGNESIUM Routine 10/16/2023 2:20 PM CDT Palpitations BASIC METABOLIC PANEL Routine 10/16/2023 2:20 PM CDT HTN (hypertension) LIPID PANEL W REFLEX MEASURED LDL Routine 11/27/2022 1:43 PM CDT Hyperlipidemia, unspecified hyperlipidemia type COLONOSCOPY SCREENING Routine 04/03/2020 9:42 AM MARKETING STRATEGY MANAGER Screening for colon cancer from Last 3 Months or Most Recently Relevant to Health Maintenance Results * MAGNESIUM (10/16/2023 2:20 PM CDT) MAGNESIUM 2.1 1.6 - 2.4 mg/dL 10/16/2023 9:41 PM CDT [facility] Blood BLOOD SPECIMEN / Unknown Venipuncture / Unknown 10/16/2023 2:20 PM CDT 10/16/2023 2:22 PM CDT Gisele Mary Castle DO [facility]MI[facility]Y [facility] [address] [place] [address], * (ABNORMAL) BASIC METABOLIC PANEL (10/16/2023 2:20 PM CDT) SODIUM 133(L) 136 - 145 mmol/L 10/16/2023 9:41 PM CDT [facility] POTASSIUM 4.6 3.5 - 5.1 mmol/L 10/16/2023 9:41 PM CDT [facility] CHLORIDE 98 98 - 107 mmol/L 10/16/2023 9:41 PM CDT [facility] CO2,TOTAL 26 22 - 29 mmol/L 10/16/2023 9:41 PM CDT [facility] ANION GAP 9 5 - 18 10/16/2023 9:41 PM CDT [facility] GLUCOSE 100(H) 70 - 99 mg/dL 10/16/2023 9:41 PM CDT [facility] CALCIUM 9.3 8.8 - 10.2 mg/dL 10/16/2023 9:41 PM CDT [facility] BUN 19 8 - 23 mg/dL 10/16/2023 9:41 PM CDT [facility] CREATININE 0.78 0.70 - 1.20 mg/dL 10/16/2023 9:41 PM CDT [facility] BUN/CREAT RATIO 24(H) 10 - 20 9:41 PM CDT [facility] eGFR >90 >90 mL/min/1.7 3m2 10/16/2023 9:41 PM CDT [facility] Comment:As of 2021, eG FR is calculated by the CKD-EPI creatinine equation without race adjustment. ??eGFR can be influenced by muscle mass, exercise, and diet. ??The reported eGFR is an estimation only and is only applicable if the renal function is stable. Blood BLOOD SPECIMEN / Unknown Venipuncture / Unknown 10/16/2023 2:20 PM CDT 10/16/2023 2:22 PM CDT Gisele Castle DO CHEMISTRY [facility] [address] [place] [address], * LIPID PANEL W REFLEX MEASURED LDL (11/27/2022 1:43 PM CDT) Pathologist [facility] CHOLESTEROL,TOTAL 156 100 - 199 mg/dL 11/28/2022 12:15 AM CDT [facility] Comment: Cholesterol, Total Reference Ranges Desirable <200 mg/dL Borderline 200-239 mg/dL High >=240 mg/dL TRIGLYCERIDES 64 <150 mg/dL 11/28/2022 12:15 AM CDT [facility] HDL CHOLESTEROL 58 >40 mg/dL 12:15 AM CDT [facility] NON-HDL CHOLESTEROL 98 <145 mg/dl 11/28/2022 12:15 AM CDT [facility] CHOL/HDL RATIO 2.69 <4.50 11/28/2022 12:15 AM CDT [facility] LDL CHOLESTEROL 85 <=130 mg/dL 11/28/2022 12:15 AM CDT [facility] VLDL CHOLESTEROL 13 <=30 mg/dL 11/28/2022 12:15 AM CDT [facility] PROVIDER ORDERED STATUS RANDOM 11/28/2022 12:15 AM CDT [facility] Blood BLOOD SPECIMEN / Unknown Venipuncture / Unknown 11/27/2022 1:43 PM CDT 11/27/2022 1:44 PM CDT Christian Valenzuela MD CHEMISTRY [facility] [address] [place] [address], * COLONOSCOPY SCREENING (04/03/2020 9:42 AM MARKETING STRATEGY MANAGER) Mukesh Carr MD GI PROCEDURE ORD from Last 3 Months or Most Recently Relevant to Health Maintenance Advance Directives * Full Code (Latest Code Status on File) Date Activated Date Inactivated Comments 10/08/2020 11:32 AM 10/08/2020 6:42 PM Question Answer Comments Code Status Discussion: Discussed * Full Code Date Activated Date Inactivated Comments 05/21/2018 1:50 AM 05/21/2018 9:16 PM Care Teams Horticulture Teacher Relationship Specialty Start Date End Date Mukesh Carr MD [address] [place] [address] PCP - General Family Practice 08/07/11 Russ Solares MD Psychiatry Family Practice 02/18/11 Devin Denney MD [address] [place] [address] Internal Medicine Sleep Medicine 08/13/11
--- OUTSIDE RECORDS SUMMARY | 2023-10-20 05:59 | XMS_ITS | Data Portability ---
Author Name Unknown Address [address] [place] [address] Phone [phone] Organization [facility] Address [address] [place] [address] Care Team Providers Care Flight Deck Officer Name Role Phone [facility] Primary Care Provider Assessment No assessment recorded. Plan of Treatment Reminders Order Date Submit Date Provider Last Modified By Organization Details Last Modified Time Details Appointments ESTABLISH ED 10 2023 02:50P Maki Fox MD Not available Not available Not available Lab None recorded. Referral None recorded. Procedures None recorded. Surgeries None recorded. Imaging None recorded. Medication Orders tamsulosi n 0.4 mg capsule 2021 022 [id number], [address] [place], [place], [phone], 02/10/2022 16:36:58 Patient TargetsNo targets recorded. Patient InstructionsNo instructions recorded. Reason for Referral None Reported. Results Created Date Observation Date Name Description Value Unit Range Abnormal Flag LastModifiedBy Organization Detail LastModifiedTime 04/15/2004/10/2021 measu remen t of post- voidi ng resid ual urine and/o r bladd er capac ity (PROC ) No observ ation record ed. [email or web address] Not Available 04/15/2021 13:45:10 02/12/20 22 02/10/2022 bladd er scan (PROC ) No observ ation record ed. BARCODE Not Available 02/11/2022 13:54:31 Result Notes None recorded. Procedures Surgical History Date Name Laterality Status Provider Name and Address Organization Details Recorded Time 09/12/20 22 Bladder Scan completed Guero Fox MD [address], [place], [address], [place] [facility] 02/10/2022 15:58:47 12/28/19 11 Us urine capacity measure completed Not Available [facility] 11/10/2019 11:22:17 01/03/20 10 Anal/urinary muscle study completed Not Available [facility] 11/10/2019 11:22:17 12/07/19 10 Anal/urinary muscle study completed Not Available [facility] 11/10/2019 11:22:17 11/28/19 10 Anal/urinary muscle study completed Not Available [facility] 11/10/2019 11:22:17 11/22/19 10 Anal/urinary muscle study completed Not Available [facility] 11/10/2019 11:22:17 10/30/18 93 Appendectomy completed Not Available [facility] 020 11:22:17 Anal/urinary muscle study completed Not Available [facility] 11/10/2019 11:22:17 Imaging Results Imaging Date Name Status LastModified by Organiz ation Details LastModified Time 04/10/2021 measurement of post-voiding residual urine and/or bladder capacity (PROC) completed [email or web address] Information not available 04/15/2021 13:45:10 02/10/2022 bladder scan (PROC) completed BARCODE Information not available 02/11/2022 13:54:31 Procedure Notes None recorded. Medical Equipment None Reported. Allergies No known drug allergies Medications Name Sig Start Date Stop Date Status Note LastModified by Organization Details LastModified Time losartan 50 mg tablet 02/10 completed Not Available Not Available Not Available carvedilol 6.25 mg tablet active Not Available Not Available Not Available benzonatate 200 mg capsule 02/10 completed Not Available Not Available Not Available doxazosin 8 mg tablet active Not Available Not Available No t Available tamsulosin 0.4 mg capsule TAKE 2 CAPSULES BY MOUTH EVERY DAY active Not Available Not Available No t Available timolol maleate 0.25 % eye drops INSTILL 1 DROP IN BOTH EYES TWICE DAILY 02/10 completed Not Available Not Available Not Available pantoprazol e 40 mg tablet,marcus yed release active Not Available Not Available Not Available lisinopril 10 mg tablet 02/10 completed Not Available Not Available Not Available codeine 10 mg-guaifene sin 100 mg/5 mL oral liquid TAKE 5 ML BY MOUTH EVERY 4 HOURS NEEDED FOR COUGH. MAX DOSE 60 ML PER 24 HOURS 02/10 completed Not Available Not Available Not Available albuterol sulfate HFA 90 mcg/actuati on aerosol inhaler INHALE 2 PUFFS BY MOUTH EVERY 4 HOURS NEEDED active Not Available Not Available No t Available losartan 100 mg tablet active Not Available Not Available Not Available fluticasone propionate 50 mcg/actuati on nasal spray,suspe nsion SHAKE LIQUID AND USE 2 SPRAYS IN EACH NOSTRIL EVERY DAY active Not Available Not Available No t Available finasteride 5 mg tablet 02/10 completed Not Available Not Available Not Available bupropion HCl XL 300 mg 24 hr tablet, extended release active Not Available Not Available Not Available Myrbetriq 50 mg tablet,exte nded release active Not Available Not Available Not Available Vitals Date Recorded Body height Body weight Provider Name and Address Organization Details Last Updated DateTime 02/10/2022 182.88 cm 054404.09 g Guero Fox MD [address] [place] [address],[address], [id number] 02/10/2022 15:55:24 Social History Question Answer Notes LastModified by Organizat ion Details LastModified Time Tobacco Smoking Status Never [facility]oker Not [facility]10/2019 02:56:47 Marital Status [email or web address] Informati on not available 11/10/2019 What Was The Date Of Your Most Recent Tobacco Screening? 02/10/2022 Information not available 02/10/2022 Do You Use Any Illicit Or Recreational Drugs? No Information not available 02/10/2022 Sex: Male Functional Status None recorded. Mental Status None recorded. Family History Relationship Description Onset Age of this Age Resolved Age Notes Notes:Hypertension:Runs in F amily Arthritis:Runs in Family Gout:Runs in Family Medical History Condition Response High Blood Pressure Y Depression Y GERD/Acid Reflux Y Immunizations Vaccine Type Date Status Provider Name and Address Organization Details Recorded Time pneumococcal polysaccharide PPV23 02/29/2020 completed Guero Fox MD [address] [place] [address],[address], [address], [facility] 02/10/2022 15:55:35 Pneumococcal conjugate PCV 13 11/16/2018 completed Guero Fox MD [address], [place], [address], [facility] 02/10/2022 15:55:35 Past Encounters Encounter ID Performer Location Encounter Start Date Encounter Closed Date Diagnosis/Indication Diagnosis SNOMED-CT Code [id number] Guero Fox MD [facility] [address] [place] [address] 02/10/2022 15:21:44 02/13/2022 16:59:31 Lower urinary tract symptoms due to benign prostatic hypertrophy [id number] Urgent garima reyna to urinate [id number] Health Concerns Section Related Observation LastModified by Organization Detai ls LastModified Time None Recorded Concern Status LastModified by Organization Details LastModified Time None Recorded Advance Directives Directive None Recorded Payers Encounter Date Sequence Insurance Name Policy Number Policy Anglin Covered Member ID Anglin Member ID Guarantor Name 02/10/2022 1 [employer] [employer] - MEDICARE COST [id number] Chris Fulton [id number] Chris Fulton Notes Date Note Type Note Provider Name and Address Organization Details Recorded Time 02/10/2022 text/html HPI Notes: 66 yo male with H/O urinary frequency and over-active bladder since 2008. He has seen Dr. Burnette and Dr. Wren in the past. He has tried Toviaz and Vesicare with some improvement (but expensive). Interstim was recommended - patient was not interested. Cystoscopy (05/09/14) by Dr. Knight was normal. He tried Oxybutynin ER 10 mg daily (no improvement) and Detrol (not covered by insurance)and Trospium ER 60 mg (mild improvement). He has H/O JONNA - currently using CPAP. He is on Flomax 0.4 daily, Cardura 8 mg daily (for HTN), and Myrbetriq 50 mg daily. 12/20/18 - He presents for follow-up on urination. He notes no significant change - still has urgency (with occasional incontinence). He voids every 2-3 hours during the day and 3-4x/night. He has occasional hesitancy and slow stream. He denies dysuria. 04/10/21 Here for follow-up BPH, urinary frequency, urinary urgency, and nocturia. Has been maintained on Myrbetriq 50 mg daily as well as tamsulosin. 02/10/22 - He presents for follow-up on BPH and urination. He voids every 2 hours during the day and 1x/night. He urgency (with occasional leakage), hesitancy, and slow stream - denies dysuria. His nocturia improved with CPAP. PVR = 28 mL PSA - 1.50 (04/26/13) - 1.95 (04/20/14) - 1.40 (04/17/15) - 1.96 (03/18/17) - 1.65 (12/20/18) - 1.89 (01/29/20) - 2.21 (01/17/22) Guero Fox MD [address] [place] [address],[address], [place], [address], [facility] 02/10/2022 20:45:42
[2023-10-20] MEDS: hydrOXYzine pamoate 25 MG CAPSULE PO (06:00)
[2023-10-20 06:18] LABS: Basophils Absolute Auto 0.02 K/uL (0.00-0.30); Basophils Percent Auto 0.2 % (0.0-3.0); Eosinophils Absolute Auto 0.27 K/uL (0.00-0.50); Eosinophils Percent Auto 3.3 % (0.0-7.0); Hematocrit 37.3 % (37.0-53.0); Hemoglobin* 12.8 gm/dL (13.5-17.5); Immature Granulocytes Abs Auto 0.04 K/uL (0.00-0.30); Immature Granulocytes Pct Auto 0.5 %; Lymphocytes Percent Auto 52.6 % (20-44); Mean Corpuscular HGB Conc 34 gm/dL (32-36); Mean Corpuscular Hemoglobin 33 pg (26-34); Mean Corpuscular Volume 95 fL (80-100); Monocytes Percent Auto 7.4 % (0.0-11.0); Platelet Count* 213 K/uL (140-440); Red Blood Count 3.92 m/uL (4.30-5.90); White Blood Count* 8.25 K/uL (4.50-11.00)
[2023-10-20 06:22] LABS: Chloride* 98 mmol/L (96-114); Potassium* 3.9 mmol/L (3.6-5.1); Sodium* 132 mmol/L (135-149)
[2023-10-20 06:25] LABS: Anion Gap 7 mEq/L (7-15); Blood Urea Nitrogen* 18 mg/dL (7-30); Carbon Dioxide* 27 mmol/L (20-32); Creatinine* 0.8 mg/dL (0.5-1.5); Est. Creatinine Clearance* 73.21; Estimated Glomerular Filt Rate 95 ml/min; Slide Review Reflex No
[2023-10-20 06:26] LABS: Calcium* 8.6 mg/dL (8.4-10.6); Glucose* 99 mg/dL (60-115)
--- NOTE | 2023-10-20 06:39 | ED_ITS ---
HPI - General Adult General Chief complaint: Anxiety Stated complaint: rapid heartbeat Time Seen by Provider: 10/20/23 04:56 Source: patient Mode of arrival: ambulatory Limitations: no limitations History of Present Illness HPI narrative: 68-year-old male presents the emergency department for evaluation of feeling of pounding heart at home. He reports that he was trying to fall asleep tonight, feeling a little anxious and overwhelmed. States that he has a ?a lot going on right now?. He states that he had difficulty falling asleep and then had a run lasting for about 5-10 seconds of pounding heart. He says that he attempted to feel his pulse on his neck while lying down and it was hard to find. He did eventually set up and check his pulse and reported that it was in normal range. He does have a heart rate and blood pressure monitor at home which he did not think to use. He does not have a smart watch. He was not feeling dizzy, lightheaded, short of breath. He was having no chest pain. Reports that he had a similar episode about 3 weeks ago did not seek care. States that he has had these types of symptoms in the past as well. He had a stress echo and a Holter monitor within the last year to work these up and was told that they were related to anxiety but otherwise normal. I do not have those reports available as they were performed at a line a but he does reassure me that those were normal. He says that he does feel like it is probably anxiety related and was unsure if he should even come into the hospital. He was at a earlier in the day and was talking to a friend who had been having heart symptoms and recently had stents put in. Symptoms are not similar nor related. Past medical history notable for anxiety, hypertension, BPH. Medications are reviewed. The only changes that he reports that he is out of his Coreg and that he is also taking amlodipine which is not listed on his list here. No other reported changes. He is a nonsmoker. He does have a family history of heart disease. ROS is notable for the anxiety and cardiac symptoms as described above, otherwise denies times 12 systems. Related Data Home Medications Medication Instructions Recorded Confirmed bupropion HCl 300 mg 24 hr tablet, mg PO 12/20/21 extended release doxazosin 8 mg tablet mg 12/20/21 losartan 100 mg tablet mg 12/20/21 mirabegron 50 mg tablet,extended mg PO 12/20/21 release 24 hr (Myrbetriq) pantoprazole 40 mg tablet,delayed mg PO 12/20/21 release tamsulosin 0.4 mg capsule mg PO 12/20/21 Previous Rx's Medication Instructions Recorded oxycodone 5 mg capsule 5 mg PO Q6H PRN pain #12 caps 12/17/22 Allergies Allergy/AdvReac Type Severity Reaction Status Date / Time No Known Drug Allergies Allergy Verified 12/20/21 18:09 [facility] Social History Smoking Status: Never smoker How often do you have a drink containing alcohol: 2-3 times a week How often do you have six or more drinks on one occasion: Never AUDIT-C Alcohol total score: 3 Non-prescribed substance use: denies use Exam Const: Vital Signs, click to edit/add: Vital Signs - 24 hr 10/20/23 04:58 Temperature 97.1 F L Pulse Rate [Pulse Oximeter] 82 Respiratory Rate 16 Blood Pressure [Ri ght Upper Arm] 160/89 H Pulse Oximetry 98 Oxygen Delivery Me thod Room Air Documenting provider has reviewed patient's vital signs: yes Common normals: alert General appearance: well kempt Other: Anxious but good historian. Appears well nourished and well hydrated. HENMT: Common normals: normocephalic and oropharynx normal Head and scalp: normocephalic Face and sinus: normal facial exam Mouth: oral and palatal mucosa normal Eye: Common normals: conjunctivae normal General eye: normal appearance of both eyes Conjunctiva: conjunctiva(e) normal Neck & C-Spine: Common normals: no lymphadenopathy General: normal visual inspection Resp: Common normals: normal respiratory effort and no use of accessory muscles Effort & inspection: able to speak in complete sentences Cardio: Common normals: regular rate, regular rhythm, S1 normal heart sound, S2 normal heart sound and no murmurs Rate: regular rate Rhythm: regular rhythm Heart sounds: S1 normal and S2 normal GI: Common normals: Normal to inspection, nondistended, normoactive bowel sounds present, soft to palpation, non-tender, no hepatosplenomegaly and no masses Palpation: soft and no hepatosplenomegaly Extremity: Common normals: normal to inspection, normal capillary refill and no pedal edema Neuro: Sensorium/orientation: alert Speech: speech normal Motor exam: no movement abnormalities noted Psych: Appearance: well kempt Attitude: engaged Insight: fair Judgement: fair Skin: Common normals: no rashes or lesions noted General skin exam: no rashes or lesions noted Course Course ED Course: Patient currently asymptomatic, never did have chest pain. History suspicious for PVCs or anxiety. Heart rate normal on cardiac monitors. Differential diagnosis also including acute coronary syndrome, arrhythmia, musculoskeletal symptoms, anxiety, among multiple others. Recommended EKG, typical labs, 90 minutes of cardiac monitoring. Will give 25 mg of Vistaril for anxiety. Reevaluation(s) Time of Reevaluation #1: 06:41 Reevaluation #1: Discussed findings with patient, remains asymptomatic. No abnormalities seen on lute packer or applier. Labs reviewed, reassuring. EKG normal. Patient continuing to feel well. Reassures me that he has had stress echo and Holter monitor performed within the last year. Do not recommend repeating these. Keep symptom diary, follow up with primary care provider in 2 weeks. Alarm symptoms reviewed that would warrant ED presentation. Continue current medications. Will be discharged home. Vital Signs Vital signs: Initial Vital Signs Temperature 97.1 F L 10/20/23 04:58 Temperature Source Temporal Artery Scan 10/20/23 04:58 Pulse Rate 82 10/20/23 04:58 Respiratory Rate 16 10/20/23 04:58 Blood Pressure 160/89 H 10/20/23 04:58 Blood Pressure Mean 112 H 10/20/23 04:58 Blood Pressure Position Sitting 10/20/23 04:58 Pulse Oximetry 98 10/20/23 04:58 Oxygen Delivery Method Room Air 10/20/23 04:58 Vital Signs Temperature 97.1 F L 10/20/23 04:58 Pulse Rate 82 10/20/23 04:58 Respiratory Rate 16 10/20/23 04:58 Blood Pressure 160/89 H 10/20/23 04:58 Pulse Oximetry 98 10/20/23 04:58 Oxygen Delivery Method Room Air 10/20/23 04:58 Temperature 97.1 F L 10/20/23 04:58 Pulse Rate 82 10/20/23 04:58 Respiratory Rate 16 05/21/24 04:58 Blood Pressure 160/89 H 10/20/23 04:58 Pulse Oximetry 98 10/20/23 04:58 Oxygen Delivery Method Room Air 10/20/23 04:58 Medications Administered Medications: Discontinued Medications Generic Name Dose Route Start Last Admin Trade Name Ramiroq PRN Reason Stop Dose Admin Hydroxyzine Pamoate 25 mg 10/20/23 05:42 10/20/23 06:00 Hydroxyzine Pamoate 25 Mg Capsule PO 10/20/23 05:43 25 mg ONCE ONE Administration Medical Decision Making Lab Data Lab results reviewed: Yes I reviewed the patient's lab results Lab results narrative: Normal, as expected Labs: Lab Results 10/20/23 Range/Units 06:00 WBC 8.25 (4.50-11.00) K/uL RBC 3.92 L (4.30-5.90) m/uL Hgb 12.8 L (13.5-17.5) gm/dL Hct 37.3 (37.0-53.0) % MCV 95 (80-100) fL MCH 33 (26-34) pg MCHC 34 (32-36) gm/dL RDW Coeff of Davie 14.0 (11.5-15.5) % Plt Count 213 (140-440) K/uL Neut % (Auto) 36.0 L (42.0-72.0) % Lymph % (Auto) 52.6 H (20-44) % Glasscock % (Auto) 7.4 (0.0-11.0) % Eos % (Auto) 3.3 (0.0-7.0) % Baso % (Auto) 0.2 (0.0-3.0) % Neut # (Auto) 3.00 (1.7-7.0) K/uL Lymph # (Auto) 4.30 H (0.90-2.90) K/uL Glasscock # (Auto) 0.60 (0.00-0.90) K/UL Eos # (Auto) 0.27 (0.00-0.50) K/uL Baso # (Auto) 0.02 (0.00-0.30) K/uL Abs Immat Gran (auto) 0.04 (0.00-0.30) K/uL Imm/Tot Granulo (auto) 0.5 % Sodium 132 L (135-149) mmol/L Potassium 3.9 (3.6-5.1) mmol/L Chloride 98 (96-114) mmol/L Carbon Dioxide 27 (20-32) mmol/L Anion Gap 7 (7-15) mEq/L BUN 18 (7-30) mg/dL Creatinine 0.8 (0.5-1.5) mg/dL Estimated Creat Clear 73.21 Estimated GFR 95 ml/min Glucose 99 (60-115) mg/dL Calcium 8.6 (8.4-10.6) mg/dL ECG Data Attestation: I personally reviewed and interpreted this ECG as follows: Prior ECG tracings: available for review Interpretation: Normal sinus rhythm, rate 71. Normal axis and intervals. Good R-wave progression. No significant ST or T-wave abnormalities. Normal EKG. Discharge Plan Discharge Clinical Impression: Symptomatic PVCs, Acute anxiety Patient Disposition: Home, Self-Care Condition: Improved Instructions: Premature Ventricular Contractions (ED) Additional Instructions: As we discussed, the forceful heartbeats that your describing are most likely consistent with PVCs. These are very common and are not typically associated with any dangerous heart pathology. I would typically recommend that you have a Holter monitor and a stress test performed to look at the heart further but you reassure me that you have had both of these performed within the last year. As we discussed, you might consider investing in a smart watch with heart rate monitoring capabilities. If you choose to do so, I would strongly recommend that it also has arrhythmia detection and also fall detection properties. We do not need to make any changes to her medications. I would like for you to keep a symptom diary and follow up with her primary care provider in a couple of weeks to reassess how things are going. Watch for any correlation is with caffeine, alcohol or other stressors that may be making your symptoms worse. Sometimes people taking bupropion have more of these beats. You should discuss with your primary care provider if continuing on this medication is right for you. Remember that these beats are not typically dangerous and if the medication is helping you, the benefit likely outweighs any risk. It is okay to use 10 mg of melatonin as needed or even every night to help you sleep when you are feeling anxious. Come back to the emergency department if you have persistent chest symptoms, severe dizziness or exertional type symptoms. You may return to unrestricted exercise and activity. Activity Level: No Restrictions Discharge Diet: Regular Prescriptions: No Action doxazosin 8 mg tablet tamsulosin 0.4 mg capsule PO pantoprazole 40 mg tablet,delayed release (DR/EC) PO losartan 100 mg tablet bupropion HCl 300 mg tablet extended release 24 hr PO Myrbetriq 50 mg tablet extended release 24 hr PO oxycodone 5 mg capsule 5 mg PO Q6H PRN (Reason: pain) Qty: 12 0RF Follow Up/Referrals: Mukesh Carr MD [Primary Care Provider] - Stand Alone Forms: [facility] Info Instructions
== END 2023-10-20 07:15 | disposition home or self-care (01) ==
PROVIDERS: Emergency Provider Family Medicine; PCP Family Medicine
DX: I49.3 Ventricular premature depolarization (principal); F41.9 Anxiety disorder, unspecified
CPT/HCPCS: 36415; 80048; 84484; 85025; 93005; 99284; A9270